=== PATIENT | male | born 1980 | race Caucasian/White ===

== ENCOUNTER 2020-03-18 17:21 | Emergency (ER) | payer BC, SELFPAY ==
--- NOTE | 2020-03-18 17:32 | DI.RAD.S_ITS ---
PROCEDURE: XR CHEST 1V INDICATIONS: chest pain TECHNIQUE: One view of the chest was acquired. COMPARISON: None. FINDINGS: Surgical changes and devices: None. Lungs and pleura: Lungs are clear. No pleural effusions or pneumothorax. Mediastinum: Mediastinal contours appear normal. Heart size is normal. Bones and chest wall: No suspicious bony lesions. Overlying soft tissues appear unremarkable. IMPRESSION: 1. No acute cardiopulmonary disease. Dictated by: Hugo Maciel M.D. on 03/18/2020 at 18:37 Approved by: Hugo Maciel M.D. on 03/18/2020 at 18:38
[2020-03-18 17:37] VITALS: BP 169/95; PULSE 93; RESP 20; TEMP 37.2; O2SAT 98; BMI 31.0
[2020-03-18 17:57] LABS: INR 1.1 (0.9-1.3); Mean Corpuscular Hemoglobin 32.6 PG (26-34); Prothrombin Time 12.2 SECONDS (10.1-12.7); White Blood Cell Count 10.3 X10^3/uL (4.5-11.0)
[2020-03-18 17:59] LABS: PTT Partial Thromboplastin Tim 35 SECONDS (26.4-36.2)
[2020-03-18 18:00] VITALS: BP 157/84; PULSE 87; RESP 16; O2SAT 98
[2020-03-18 18:01] LABS: Add Manual Diff / Slide Review NO; Basophils Absolute Auto 100 /uL (0-100); Basophils Percent Auto 0.6 % (0-2); Eosinophils Absolute Auto 100 /uL (0-450); Eosinophils Percent Auto 0.7 % (2-4); Hematocrit 44.9 % (41-53); Lymphocytes Absolute Auto 2200 /uL (1100-4500); Lymphocytes Percent Auto 21.3 % (25-40); Mean Corpuscular HGB Conc 35.6 % (30-36); Mean Corpuscular Volume 91.6 fL (80-100); Monocytes Absolute Auto 1000 /uL (0-900); Monocytes Percent Auto 9.4 % (3-14); Neutrophils Absolute Auto 7000 /uL (1500-7000); Platelet Count 218 X10^3/uL (150-400); Red Cell Distribution Width 12.8 % (11.6-14.8)
[2020-03-18 18:02] LABS: Alanine Aminotransferase 48 IU/L (<50); Albumin 4.8 g/dL (3.5-5.0); Albumin Globulin Ratio 1.6 (1.0-2.8); Alkaline Phosphatase 58 U/L (38-126); Aspartate Aminotransferase 38 IU/L (17-59); BUN Creatinine Ratio 17.1 (6-22); Bilirubin Total 0.6 mg/dL (0.2-1.3); Blood Urea Nitrogen 14 mg/dL (9-20); Calcium 9.4 mg/dL (8.4-10.2); Carbon Dioxide 28 mmol/L (22-32); Chloride 102 mmol/L (98-107); Creatine Kinase 278 U/L (55-170); Estimated Glomerular Filt Rate > 60.0 mL/min (>60); Glucose 116 mg/dL (70-100); Lipase 31 U/L (23-300); Potassium 3.6 mmol/L (3.4-5.1); Sodium 136 mmol/L (137-145); Total Protein 7.8 g/dL (6.3-8.2)
[2020-03-18 18:13] LABS: Troponin I < 0.012 ng/mL (0.01-0.034)
[2020-03-18] MEDS: LIDOCAINE PATCH 1 EACH ADH..PATCH 2 EACH TOP (18:16)
[2020-03-18 18:17] LABS: CKMB % Relative Index 0.8 % (1.5-5.0); Creatine Kinase MB 2.17 ng/mL (<2.37); HEMOLYSIS < 15 (0-50)
[2020-03-18] MEDS: KETOROLAC 60 MG/2 ML VIAL 15 MG IV (18:17)
[2020-03-18] MEDS: ACETAMINOPHEN 325 MG TABLET 650 MG PO (18:17)
[2020-03-18] MEDS: CYCLOBENZAPRINE 10 MG TABLET PO (18:17)
[2020-03-18] MEDS: SODIUM CHLORIDE 0.9% 1,000 ML 1000 ML IV (18:18)
[2020-03-18 18:54] VITALS: BP 163/87; PULSE 85; RESP 18; O2SAT 98
[2020-03-18 19:00] VITALS: BP 152/87; PULSE 83; RESP 19; O2SAT 98
[2020-03-18 19:15] LABS: UR Morphine/Opiate cutoff 300 Negative (Negative); Ur Creatinine 50 (Normal); Ur Specific Gravity 1.015 (Normal); Urine Amphetamines Negative (Negative); Urine Barbiturates Negative (Negative); Urine Benzodiazepines Negative (Negative); Urine Cocaine Negative (Negative); Urine MDMA Negative (Negative); Urine Methadone Negative (Negative); Urine Methamphetamines Negative (Negative); Urine Oxycodone Positive (Negative); Urine Phencyclidine Negative (Negative); Urine Tetrahydrocannabinol Negative (Negative); Urine Tricyclic Antidepressant Negative (Negative); Urine pH 7 (Normal)
[2020-03-18] MEDS: MORPHINE 4 MG/ML INJ IV (20:00)
[2020-03-18] MEDS: LIDOCAINE PATCH 1 EACH ADH..PATCH TOP (20:00)
[2020-03-18 20:31] VITALS: BP 137/87; PULSE 67; RESP 17; O2SAT 94
--- NOTE | 2020-03-18 23:23 | ED.CHESTPAIN ---
HPI - Chest Pain <ADIEL Estrella - Last Filed: 03/19/20 00:07> General Chief Complaint: Chest Pain Stated Complaint: dizziness, chest tight, lower back pain Time Seen by Provider: 03/18/20 17:55 Source: patient Mode of arrival: Ambulatory Limitations: no limitations History of Present Illness HPI narrative: This is a 39-year-old male, nonsmoker, who presents to ED with family with chief complain of low back pain, tingling sensation in his arms and legs, head felt cloudy with pain, posterior all scalp numbness, dizziness, chest and shoulder tightness, generalize feeling off since 2:00 p.m. today while his fishing on a boat. Patient is from [facility] visiting his brother and his planning to go back to home soon. Patient denies fever, chills, nausea or vomiting, rash, trauma or recent head injury. Patient denies short of breath, lower extremity swelling, calf pain, redness. Patient denies was hyperventilating or having a panic attack prior to this. Patient reports had similar symptoms in the past after he fell 4 ft. off a boat about a year ago and has been having neck problem. Patient did not have loss of consciousness foot reports had struck his head forcefully at that time. The family member states any has this type of symptoms he has urinary frequency. He states he was evaluated at [facility] about 2 months ago with similar symptoms. He had head CT scan and blood tests done at that time with negative findings. He is currently working with his primary care physician for advanced imaging test, MRI, for regional symptoms with neck and back pain with radiculopathy and planned physical therapy. Patient states he has been taking Flexeril, Tylenol, ibuprofen as needed for discomfort. Patient denies taking any muscle relaxant for last 2 days. Patient has history of right knee surgery in the past. Related Data Previous Rx's Medication Instructions Recorded hydrocodone-acetaminophen [[place]] 1 tab PO BID PRN #5 tab 03/18/20 lidocaine 1 patch TOP DAILY #30 each 03/18/20 Allergies Allergy/AdvReac Type Severity Reaction Status Date / Time No Known Drug Allergies Allergy Verified 03/18/20 17:37 Review of Systems <ADIEL Estrella - Last Filed: 03/19/20 00:07> Review of Systems Narrative: General: Denies fever, chills, fatigue, malaise, sweats. HEENT: Denies sinus pain, ear pain, sore throat, difficulty swallowing, dizziness. Respiratory: Denies dyspnea, cough, wheezing, hemoptysis, sputum. Cardiovascular: Denies (+) chest pain, palpitations, orthopnea, edema. Gastrointestinal: Denies nausea, vomiting, abdominal pain, diarrhea, constipation, melena. : Denies dysuria, (+) frequency, incontinence, hematuria, urinary retention. Musculoskeletal: See HPI Skin: Denies rash, skin lesions, or other. Neurologic: See HPI Psychiatric: No concerning psychosocial issues. 12-point review of systems is negative except for those stated above. Patient History <ADIEL Estrella - Last Filed: 03/19/20 00:07> Medical History Anxiety (Acute) Back pain (Acute) Cervical radiculopathy (Acute) Depression (Acute) Surgical History H/O knee surgery (Acute) Social History Smoking Status: Never smoker Smoking Status: Never smoker alcohol intake frequency: a few times a month Substance Use Type: does not use Exam <ADIEL Estrella - Last Filed: 03/19/20 00:07> Narrative Exam Narrative: GEN: Alert, oriented x 3, well nourished, and appears to be in moderate discomfort without acute distress. Head: Normal cephalic, atraumatic. No scalp or temporal tenderness, palpable mass or rash. EYES: Pupils are equal, round, and reactive to light and accommodation. Extraocular muscles are intact bilaterally. There is no subconjunctival hemorrhage, exudate and sclera non-icteric. ENT: Bilateral auditory canals and tympanic membranes clear. Hearing grossly intact. Nose without bleeding, purulent discharge, septal hematoma or deviation. Turbinate without erythema or swelling. Facial sinuses nontender to palpate. Mucous membrane dry, no mucosal lesion. Throat without erythema, tonsillar hypertrophy or exudate. Uvula in midline, airway patent. Neck: Trachea in midline. No JVD, one posterior cervical lymphadenopathy approx size in 1 cm. No masses or thyroid megaly. Supple, non-tender and no meningeal signs. CARDIAC: Normal regular rate and rhythm without murmurs, gallops, or rubs. No chest wall tenderness. No peripheral edema, cyanosis or pallor. Capillary refill is less than 2 seconds. No carotid bruits. RESPIRATORY: Lungs are cleat to auscultate bilaterally. No cough, wheezes, rales, or rhonchi. No stridor, respiratory distress, increase work of breathing, or accessary muscle used. ABD: Abdomen soft, nontender and non-distended. No guarding or rebound tenderness to palpate. Bowel sounds are normal in all 4 quadrants. There is no palpable masses or organomegaly. EXT: Full painless ROM of all extremities with no loss of sensation, strength, effusion or edema. SKIN: Warm, dry, normal color for patient. No erythema, lesions or rash. BACK: Paracervical spine tenderness and tight muscle with lumbar para spine tenderness with tightness. No flank tenderness or rash noted. NEUROLOGICAL: Alert and oriented to place, time and person. No facial droops, dysphasia. CN II-XII intact. Strength and sensation symmetric and intact throughout. Reflexes 2+ patellar reflex. Cerebellar testing normal. PSYCHIATRIC: Good judgement and reason, without hallucinations, abnormal affect or abnormal behaviors during the examination. Patient is not suicidal. Initial Vital Signs Initial Vital Signs: Vital Signs Temperature 99.0 F 03/18/20 17:37 Pulse Rate 93 H 03/18/20 17:37 Respiratory Rate 03/18/20 17:37 Blood Pressure 169/95 H 03/18/20 17:37 Pulse Oximetry 98 03/18/20 17:37 Back/Spine/Pelvis Back: normal to inspection Thoracic/Lumbar Spine: thoracic and lumbar spine normal to inspection, paraspinal tenderness, thoraco-lumbar spasm and straight leg raise positive (Right) <Senthil Philippe MD - Last Filed: 03/19/20 07:51> Initial Vital Signs Initial Vital Signs: Vital Signs Temperature 99.0 F 03/18/20 17:37 Pulse Rate 93 H 03/18/20 17:37 Respiratory Rate 03/18/20 17:37 Blood Pressure 169/95 H 03/18/20 17:37 Pulse Oximetry 98 03/18/20 17:37 Scores <Honorio Howard ADIEL - Last Filed: 03/19/20 00:07> GCS Jay coma scale eye opening: Spontaneous Jay coma scale verbal response: Orientated Jay coma scale motor response: Obey commands T[place]man coma scale total score: 15 HEART Score Heart Score history: Slightly Suspicious Heart Score EKG: Normal Heart Score Age: < 45 years old Heart Score risk factors: No known risk factors Heart Score troponin: < or = to normal limit Heart Score Total: 0 NIH Stroke Scale Level of Conciousness: Alert, keenly responsive Ask month/age: Answers both questions correctly. Open/close eyes, close hand: Performs both tasks correctly Best gaze horizontal: Normal Visual hernandez: No visual loss Facial palsy: Normal symetrical movement Left arm drift: No drift for full 10 sec Right arm drift: No drift for full 10 sec Left leg drift: No drift for full 10 sec Right leg drift: No drift for full 10 sec Limb ataxia: Absent Sensory on face/arms/legs: Normal, no sensory loss Best language: No aphasia, normal Dysarthria: Normal Extinction or inattention: No abnormality Total NIH Stroke scale score: 0 PERC Score Age greater than or equal to 50 years: No Heart rate greater than or equal to 100 bpm: No Room Air O2 Sat less than 95%: No Unilateral leg swelling: No Recent trauma or surgery: No Hemoptysis: No Prior PE or DVT: No Hormone Use: No Total PERC Score: 0 Wells' Criteria for PE Clinical signs and symptoms of DVT: No PE is #1 Dx or equally likely: No Heart rate > 100: No Immobilization at least 3 days or surg in previous 4 weeks: No History of PE or DVT: No Hemoptysis: No Malignancy w/Treatment within 6 months or palliative: No Wells' PE Score total: 0 Course <Honorio HowardADIEL - Last Filed: 03/19/20 00:07> Orders Ordered: Discontinued Medications Acetaminophen (Tylenol) 650 mg PO NOW ONE Stop: 03/18/20 18:11 Last Admin: 03/18/20 18:17 Dose: 650 mg Documented by: KHALIDA Cyclobenzaprine HCl (Flexeril) 10 mg PO NOW ONE Stop: 03/18/20 18:11 Last Admin: 03/18/20 18:17 Dose: 10 mg Documented by: KHALIDA Sodium Chloride (Normal Saline 0.9%) 1,000 mls @ 1,000 mls/hr IV BOLUS ONE Stop: 03/18/20 19:09 Last Infusion: 03/18/20 19:15 Dose: 0 mls/hr Documented by: Admin: 03/18/20 18:18 Dose: 1,000 mls/hr Documented by: KHALIDA Ketorolac Tromethamine (Toradol) 15 mg IV NOW ONE Stop: 03/18/20 18:11 Last Admin: 03/18/20 18:17 Dose: 15 mg Documented by: KHALIDA Lidocaine (Lidoderm) 2 each TOP NOW ONE Stop: 03/18/20 18:11 Last Admin: 03/18/20 18:16 Dose: 2 each Documented by: KHALIDA Lidocaine (Lidoderm) 1 each TOP NOW ONE Stop: 03/18/20 19:51 Last Admin: 03/18/20 20:00 Dose: 1 each Documented by: VANESSA Morphine Sulfate (Morphine) 4 mg IV NOW ONE Stop: 03/18/20 19:51 Last Admin: 03/18/20 20:00 Dose: 4 mg Documented by: VANESSA Vital Signs Vital signs: Vital Signs - 8 hr 03/18/20 17:37 03/18/20 18:00 03/18/20 18:54 Temperature 99.0 F Pulse Rate 93 H 87 85 Respiratory Rate 20 16 18 Blood Pressure 169/95 H Blood Pressure [Left Arm] 157/84 H 163/87 H Pulse Oximetry 98 98 98 03/18/20 19:00 03/18/20 20:31 Temperature Pulse Rate 83 67 Respiratory Rate 19 17 Blood Pressure Blood Pressure [Left Arm] 152/87 H 137/87 Pulse Oximetry 98 94 <Senthil Philippe MD - Last Filed: 03/19/20 07:51> Orders Ordered: Discontinued Medications Acetaminophen (Tylenol) 650 mg PO NOW ONE Stop: 03/18/20 18:11 Last Admin: 03/18/20 18:17 Dose: 650 mg Documented by: KHALIDA Cyclobenzaprine HCl (Flexeril) 10 mg PO NOW ONE Stop: 03/18/20 18:11 Last Admin: 03/18/20 18:17 Dose: 10 mg Documented by: KHALIDA Sodium Chloride (Normal Saline 0.9%) 1,000 mls @ 1,000 mls/hr IV BOLUS ONE Stop: 03/18/20 19:09 Last Infusion: 03/18/20 19:15 Dose: 0 mls/hr Documented by: Admin: 03/18/20 18:18 Dose: 1,000 mls/hr Documented by: KHALIDA Ketorolac Tromethamine (Toradol) 15 mg IV NOW ONE Stop: 03/18/20 18:11 Last Admin: 03/18/20 18:17 Dose: 15 mg Documented by: KHALIDA Lidocaine (Lidoderm) 2 each TOP NOW ONE Stop: 03/18/20 18:11 Last Admin: 03/18/20 18:16 Dose: 2 each Documented by: KHALIDA Lidocaine (Lidoderm) 1 each TOP NOW ONE Stop: 03/18/20 19:51 Last Admin: 03/18/20 20:00 Dose: 1 each Documented by: VANESSA Morphine Sulfate (Morphine) 4 mg IV NOW ONE Stop: 03/18/20 19:51 Last Admin: 03/18/20 20:00 Dose: 4 mg Documented by: VANESSA Vital Signs Vital signs: Vital Signs - 8 hr 03/18/20 17:37 03/18/20 18:00 03/18/20 18:54 Temperature 99.0 F Pulse Rate 93 H 87 85 Respiratory Rate 20 16 18 Blood Pressure 169/95 H Blood Pressure [Left Arm] 157/84 H 163/87 H Pulse Oximetry 98 98 98 03/18/20 19:00 03/18/20 20:31 Temperature Pulse Rate 83 67 Respiratory Rate 19 17 Blood Pressure Blood Pressure [Left Arm] 152/87 H 137/87 Pulse Oximetry 98 94 MDM - Chest Pain <Honorio ADIEL Howard - Last Filed: 03/19/20 00:07> Differential Diagnosis Differential diagnosis: Likely atypical chest pain, costochondritis and other (Cervical radiculopathy, lumbar radiculopathy, hyperglycemia, TIA, anxiety/panic attack) Medical Records Data Attestation: I reviewed the patient's medical records. Lab Data Attestation: I reviewed the patient's lab results. Result diagrams: 03/18/20 17:45 03/18/20 17:45 Labs: Lab Results 03/18/20 03/18/20 03/18/20 Range/Units 17:45 17:45 17:45 WBC 10.3 (4.5-11.0) X10^3/uL RBC 4.90 (4.5-5.9) X10^6/uL Hgb 16.0 (13.5-17.5) g/dL Hct 44.9 (41-53) % MCV 91.6 (80-100) fL MCH 32.6 (26-34) PG MCHC 35.6 (30-36) % RDW 12.8 (11.6-14.8) % Plt Count 218 (150-400) X10^3/uL Neut % (Auto) 68.0 (50-75) % Lymph % (Auto) 21.3 L (25-40) % [place] % (Auto) 9.4 (3-14) % Eos % (Auto) 0.7 L (2-4) % Baso % (Auto) 0.6 (0-2) % Neut # (Auto) 7000 (8500-9610) /uL Lymph # (Auto) 2200 (7853-0018) /uL [place] # (Auto) 1000 H (0-900) /uL Eos # (Auto) 100 (0-450) /uL Baso # (Auto) 100 (0-100) /uL PT 12.2 (10.1-12.7) SECONDS INR 1.1 (0.9-1.3) APTT 35 (26.4-36.2) SECONDS Sodium 136 L (137-145) mmol/L Potassium 3.6 (3.4-5.1) mmol/L Chloride 102 (98-107) mmol/L Carbon Dioxide 28 (22-32) mmol/L BUN 14 (9-20) mg/dL Creatinine 0.82 (0.66-1.25) mg/dL Estimated GFR > 60.0 (>60) mL/min BUN/Creatinine Ratio 17.1 (6-22) Glucose 116 H (70-100) mg/dL Calcium 9.4 (8.4-10.2) mg/dL Total Bilirubin 0.6 (0.2-1.3) mg/dL AST 38 (17-59) IU/L ALT 48 (<50) IU/L Alkaline Phosphatase 58 (38-126) U/L Total Creatine Kinase 278 H (55-170) U/L CK-MB (CK-2) 2.17 (<2.37) ng/mL CK-MB (CK-2) Rel Index 0.8 L (1.5-5.0) % Troponin I < 0.012 (0.01-0.034) ng/mL Total Protein 7.8 (6.3-8.2) g/dL Albumin 4.8 (3.5-5.0) g/dL Globulin 3.0 (1.7-4.1) g/dL Albumin/Globulin Ratio 1.6 (1.0-2.8) Lipase 31 (23-300) U/L U Opiates 300ng/mL cut (Negative) Ur Oxycodone Screen (Negative) Urine Methadone Screen (Negative) Ur Barbiturates Screen (Negative) U Tricyclic Antidepress (Negative) Ur Phencyclidine Scrn (Negative) Ur Amphetamines Screen (Negative) U Methamphetamines Scrn (Negative) Ur MDMA Scrn (Ecstasy) (Negative) U Benzodiazepines Scrn (Negative) Urine Cocaine Screen (Negative) U Marijuana (THC) Screen (Negative) 03/18/20 Range/Units 18:15 WBC (4.5-11.0) X10^3/uL RBC (4.5-5.9) X10^6/uL Hgb (13.5-17.5) g/dL Hct (41-53) % MCV (80-100) fL MCH (26-34) PG MCHC (30-36) % RDW (11.6-14.8) % Plt Count (150-400) X10^3/uL Neut % (Auto) (50-75) % Lymph % (Auto) (25-40) % [place] % (Auto) (3-14) % Eos % (Auto) (2-4) % Baso % (Auto) (0-2) % Neut # (Auto) (1144-4322) /uL Lymph # (Auto) (4183-0864) /uL [place] # (Auto) (0-900) /uL Eos # (Auto) (0-450) /uL Baso # (Auto) (0-100) /uL PT (10.1-12.7) SECONDS INR (0.9-1.3) APTT (26.4-36.2) SECONDS Sodium (137-145) mmol/L Potassium (3.4-5.1) mmol/L Chloride (98-107) mmol/L Carbon Dioxide (22-32) mmol/L BUN (9-20) mg/dL Creatinine (0.66-1.25) mg/dL Estimated GFR (>60) mL/min BUN/Creatinine Ratio (6-22) Glucose (70-100) mg/dL Calcium (8.4-10.2) mg/dL Total Bilirubin (0.2-1.3) mg/dL AST (17-59) IU/L ALT (<50) IU/L Alkaline Phosphatase (38-126) U/L Total Creatine Kinase (55-170) U/L CK-MB (CK-2) (<2.37) ng/mL CK-MB (CK-2) Rel Index (1.5-5.0) % Troponin I (0.01-0.034) ng/mL Total Protein (6.3-8.2) g/dL Albumin (3.5-5.0) g/dL Globulin (1.7-4.1) g/dL Albumin/Globulin Ratio (1.0-2.8) Lipase (23-300) U/L U Opiates 300ng/mL cut Negative (Negative) Ur Oxycodone Screen Positive H (Negative) Urine Methadone Screen Negative (Negative) Ur Barbiturates Screen Negative (Negative) U Tricyclic Antidepress Negative (Negative) Ur Phencyclidine Scrn Negative (Negative) Ur Amphetamines Screen Negative (Negative) U Methamphetamines Scrn Negative (Negative) Ur MDMA Scrn (Ecstasy) Negative (Negative) U Benzodiazepines Scrn Negative (Negative) Urine Cocaine Screen Negative (Negative) U Marijuana (THC) Screen Negative (Negative) Imaging Data Chest x-ray: Radiologist's Impression: [address] [address] XRay Report Signed Patient: Good Agee GMR#: [id number] : 1980Acct:[id number] Age/Sex: 39 / MDate of Service: 03/18/20 Loc: ED Accession Number: [id number] Procedure: XR chest 1V Ordering Provider: Senthil Philippe MD PROCEDURE: XR CHEST 1V INDICATIONS: chest pain TECHNIQUE: One view of the chest was acquired. COMPARISON: None. FINDINGS: Surgical changes and devices: None. Lungs and pleura: Lungs are clear. No pleural effusions or pneumothorax. Mediastinum: Mediastinal contours appear normal. Heart size is normal. Bones and chest wall: No suspicious bony lesions. Overlying soft tissues appear unremarkable. IMPRESSION: 1. No acute cardiopulmonary disease. Dictated by: Hugo Maciel M.D. on 03/18/2020 at 18:37 Approved by: Hugo Maciel M.D. on 03/18/2020 at 18:38 ECG Data Attestation: I personally reviewed and interpreted this ECG as follows: Prior ECG tracings: not available for review Interpretation: Sinus rhythm rate at 91. Normal [place]. DC interval of 152, QRS duration of 95, QT/QTC of 367/for 15. No acute ST changes. MDM Narrative Medical decision making narrative: Patient's EKG was normal sinus rhythm without at acute ST changes. Neuro exam without focal deficit. NIH stroke score, fast exam, heart score, wells criteria for PE, PERC scores or all negative. Patient was evaluated at [address] [place] [address] with head CT which was negative for acute findings. Patient states his symptoms similar at that time and he declined another CT scan of head today. CBC was unremarkable. Mild hyponatremia of 136, with slightly elevated serum glucose of 116 which patient and family member was concerned for diabetes. Patient advised to follow-up with primary care physician for hemoglobin A1c test or fasting glucose to rule out diabetes. Negative cardiac enzymes with mildly elevated total CK of 278. Patient's oral mucous membrane was dried per physical exam. Patient was hydrated with 1 L of normal saline. Normal lipase, kidney function test, and liver function test. UDS indicates positive for oxycodone and states he does not have Percocet or hydrocodone at home for his back pain management. Urine test was negative for infection. It does not appears to be is chest pain is cardiac related. His symptoms is likely from cervical and lumbar radiculopathy after he was fishing in a [place] boat. Patient had intact sensation and was able to distinguish sharp and dull sensation in all extremities. Upper and lower bilateral extremities with 5/5. Patient was medicated with Flexeril, lidocaine patch on his low back, Tylenol, IV Toradol with limited improvement. Additional lidocaine patch on his posterior neck and small dose of morphine was administered before discharged to home. Patient discharged to home with Rx of lidocaine patch and small dose of [place] for severe pain but advised to use [id number] Tylenol, Motrin, Flexeril, lidocaine patch as first-line pain management and to use narcotic medication for severe pain after discussing narcotic medication precautions. Patient advised to hydrate adequately next couple of days. Patient advised to follow up with his primary care physician to continue to work on MRI testing. Return precautions were discussed with patient and verbalized understanding and agreement with treatment plan. <Senthil Philippe MD - Last Filed: 03/19/20 07:51> Lab Data Labs: Lab Results 03/18/20 03/18/20 03/18/20 Range/Units 17:45 17:45 17:45 WBC 10.3 (4.5-11.0) X10^3/uL RBC 4.90 (4.5-5.9) X10^6/uL Hgb 16.0 (13.5-17.5) g/dL Hct 44.9 (41-53) % MCV 91.6 (80-100) fL MCH 32.6 (26-34) PG MCHC 35.6 (30-36) % RDW 12.8 (11.6-14.8) % Plt Count 218 (150-400) X10^3/uL Neut % (Auto) 68.0 (50-75) % Lymph % (Auto) 21.3 L (25-40) % [place] % (Auto) 9.4 (3-14) % Eos % (Auto) 0.7 L (2-4) % Baso % (Auto) 0.6 (0-2) % Neut # (Auto) 7000 (3815-5933) /uL Lymph # (Auto) 2200 (1536-8231) /uL [place] # (Auto) 1000 H (0-900) /uL Eos # (Auto) 100 (0-450) /uL Baso # (Auto) 100 (0-100) /uL PT 12.2 (10.1-12.7) SECONDS INR 1.1 (0.9-1.3) APTT 35 (26.4-36.2) SECONDS Sodium 136 L (137-145) mmol/L Potassium 3.6 (3.4-5.1) mmol/L Chloride 102 (98-107) mmol/L Carbon Dioxide 28 (22-32) mmol/L BUN 14 (9-20) mg/dL Creatinine 0.82 (0.66-1.25) mg/dL Estimated GFR > 60.0 (>60) mL/min BUN/Creatinine Ratio 17.1 (6-22) Glucose 116 H (70-100) mg/dL Calcium 9.4 (8.4-10.2) mg/dL Total Bilirubin 0.6 (0.2-1.3) mg/dL AST 38 (17-59) IU/L ALT 48 (<50) IU/L Alkaline Phosphatase 58 (38-126) U/L Total Creatine Kinase 278 H (55-170) U/L CK-MB (CK-2) 2.17 (<2.37) ng/mL CK-MB (CK-2) Rel Index 0.8 L (1.5-5.0) % Troponin I < 0.012 (0.01-0.034) ng/mL Total Protein 7.8 (6.3-8.2) g/dL Albumin 4.8 (3.5-5.0) g/dL Globulin 3.0 (1.7-4.1) g/dL Albumin/Globulin Ratio 1.6 (1.0-2.8) Lipase 31 (23-300) U/L U Opiates 300ng/mL cut (Negative) Ur Oxycodone Screen (Negative) Urine Methadone Screen (Negative) Ur Barbiturates Screen (Negative) U Tricyclic Antidepress (Negative) Ur Phencyclidine Scrn (Negative) Ur Amphetamines Screen (Negative) U Methamphetamines Scrn (Negative) Ur MDMA Scrn (Ecstasy) (Negative) U Benzodiazepines Scrn (Negative) Urine Cocaine Screen (Negative) U Marijuana (THC) Screen (Negative) 03/18/20 Range/Units 18:15 WBC (4.5-11.0) X10^3/uL RBC (4.5-5.9) X10^6/uL Hgb (13.5-17.5) g/dL Hct (41-53) % MCV (80-100) fL MCH (26-34) PG MCHC (30-36) % RDW (11.6-14.8) % Plt Count (150-400) X10^3/uL Neut % (Auto) (50-75) % Lymph % (Auto) (25-40) % [place] % (Auto) (3-14) % Eos % (Auto) (2-4) % Baso % (Auto) (0-2) % Neut # (Auto) (8995-6024) /uL Lymph # (Auto) (8116-6377) /uL [place] # (Auto) (0-900) /uL Eos # (Auto) (0-450) /uL Baso # (Auto) (0-100) /uL PT (10.1-12.7) SECONDS INR (0.9-1.3) APTT (26.4-36.2) SECONDS Sodium (137-145) mmol/L Potassium (3.4-5.1) mmol/L Chloride (98-107) mmol/L Carbon Dioxide (22-32) mmol/L BUN (9-20) mg/dL Creatinine (0.66-1.25) mg/dL Estimated GFR (>60) mL/min BUN/Creatinine Ratio (6-22) Glucose (70-100) mg/dL Calcium (8.4-10.2) mg/dL Total Bilirubin (0.2-1.3) mg/dL AST (17-59) IU/L ALT (<50) IU/L Alkaline Phosphatase (38-126) U/L Total Creatine Kinase (55-170) U/L CK-MB (CK-2) (<2.37) ng/mL CK-MB (CK-2) Rel Index (1.5-5.0) % Troponin I (0.01-0.034) ng/mL Total Protein (6.3-8.2) g/dL Albumin (3.5-5.0) g/dL Globulin (1.7-4.1) g/dL Albumin/Globulin Ratio (1.0-2.8) Lipase (23-300) U/L U Opiates 300ng/mL cut Negative (Negative) Ur Oxycodone Screen Positive H (Negative) Urine Methadone Screen Negative (Negative) Ur Barbiturates Screen Negative (Negative) U Tricyclic Antidepress Negative (Negative) Ur Phencyclidine Scrn Negative (Negative) Ur Amphetamines Screen Negative (Negative) U Methamphetamines Scrn Negative (Negative) Ur MDMA Scrn (Ecstasy) Negative (Negative) U Benzodiazepines Scrn Negative (Negative) Urine Cocaine Screen Negative (Negative) U Marijuana (THC) Screen Negative (Negative) Discharge Plan Departure Patient Disposition: Home Clinical Impression: Neck pain, Elevated CK Chest pain Qualifiers: Chest pain type: unspecified Qualified Code(s): R07.9 - Chest pain, unspecified Low back pain Qualifiers: Chronicity: chronic Back pain laterality: bilateral Sciatica presence: unspecified whether sciatica present Qualified Code(s): M54.5 - Low back pain Extremity pain Qualifiers: Extremity pain location: unspecified extremity Qualified Code(s): M79.609 - Pain in unspecified limb Headache Qualifiers: Headache type: unspecified Headache chronicity pattern: unspecified pattern Intractability: not intractable Qualified Code(s): R51 - Headache Discharge Date/Time: 03/18/20 21:05 Instructions: DI for Dehydration -- Adult, DI for Low Back Pain, DI for Atypical Chest Pain, DI for Headache, DI for Neck Pain Activity Restrictions/Additional Instructions: You have been diagnosed with [paracervical pain with radiculopathy, low back pain with radiculopathy, musculoskeletal pain, chest pain, headache, dehydration, elevated CK of 278. Cardiac enzymes were negative. EKG and chest x-ray does not show acute changes. Blood glucose was mildly elevated as 116. You were treated with IV fluid, Toradol, Flexeril, lidocaine patch, Tylenol, small dose of morphine while in ED with improved in symptoms. Deferred head CT test at this time. Please continue to work with her primary care physician for further imaging test such as MRI as you mentioned]. What to do: *Take your medications as directed. Lidocaine patch and [place] has been transmitted to [facility] in [place]. [place] is narcotic medication can cause constipation, drowsiness. Please take precaution such as not driving, drink alcohol, or operating heavy equipment. Lidocaine patch stays on for 12 hours and off for 12 hours. You can continue to take [id number] Tylenol and or Motrin as needed and use Flexeril that you have for muscle relaxation. Hydrate well next couple of days with water and sports drink. *Follow up with your primary care provider in 2-3 days, call for an appointment. Let them know you were seen in the ED and that we asked you to be seen in follow up. *Return to ED if you have any new, worsening, or concerning symptoms, such as [fever, different chest pain, breathing difficulty, will to tolerate fluids, increasing tingling/numbness/weakness to her extremities, groin numbness, incontinence problem, vision change, weakness to 1 side of your body, speech difficulty or any acute concerns]. Prescriptions: New lidocaine 5 % adhesive patch,medicated 1 patch TOP DAILY Qty: 30 RF: 0 hydrocodone-acetaminophen [[place]] 5-325 mg tablet 1 tab PO BID PRN (Reason: pain) Qty: 5 RF: 0 Referrals: Miscellaneous,Doctor, MD [Primary Care Provider] -
== END 2020-03-18 21:05 | disposition home or self-care (01) ==
PROVIDERS: Emergency Medicine; Emergency Provider Nurse Practitioner Family
DX: R07.9 Chest pain, unspecified (principal); M54.5 Low back pain; M54.2 Cervicalgia; E87.1 Hypo-osmolality and hyponatremia; M79.604 Pain in right leg; R51 Headache; R79.89 Other specified abnormal findings of blood chemistry
CPT/HCPCS: 36415; 71045; 80053; 80305; 82550; 82553; 83690; 84484; 85025; 85610; 85730; 93005; 96361; 96374; 96375; 99285; J1885; J2270